=== PATIENT | female | born 1990 | race Caucasian/White ===

== ENCOUNTER 2023-02-19 12:42 | Outpatient (CLI) | payer BC | END 2023-02-19 12:43 | disposition home or self-care (01) | LOC: SCSRAD 12:42 | PROVIDERS: ATTEND Family Medicine | DX: M54.12 Radiculopathy, cervical region (principal); M54.2 Cervicalgia | CPT/HCPCS: 72050 ==

== ENCOUNTER 2023-12-02 11:15 | Outpatient (CLI) | payer BC | END 2023-12-02 11:16 | disposition home or self-care (01) | LOC: SCSRAD 11:15 | PROVIDERS: ATTEND Family Medicine | DX: M25.562 Pain in left knee (principal) ==